=== PATIENT | female | born 1985 | race Caucasian/White ===

== ENCOUNTER 2016-11-14 16:26 | Inpatient (IN) | payer OTHER ==
[2016-11-14] VITALS (11 sets, daily range): BP systolic 92–107; BP diastolic 43–62; PULSE 58–79; RESP 16–18; TEMP 98–98.6
[~2016-11-14 16:26] MED LIST: DIPHTH/TETANUS/ACEL PERTUSSIS (BOOSTER) 0.5 ML VIAL/PFS IM ONE; MEASLES, MUMPS, RUBELLA VACCINE 0.5 ML VIAL SQ ONE; PREN1TAB63
[2016-11-14] MEDS ORDERED: LACTATED RINGER'S 1000 ML INJ 1,000 ML IV PRN (17:08)
[2016-11-14] MEDS ORDERED: LACTATED RINGER'S 1000 ML INJ 1,000 ML IV SCH (17:08)
--- NOTE | 2016-11-14 17:08 | PD ---
HPI Chief Complaint cramping x1 day Date Seen: Nov 14, 2016 Time Seen: 16:59 (Cyndi Jang MD R1) Travel History International Travel<30 Days: No Contact w/Intl Traveler<30Days: No (Cyndi Jang MD R1) History of Present Illness HPI 31 year-old @37/2 with [facility]C 12/03/16 with complaint of cramping since this morning. The bilateral,diffuse cramping is coming on stronger and more frequently, though she has not timed how far apart the cramping is. She is unsure if feeling regular contractions. Reports movement. Had vaginal spotting since 11/12 when last checked in [facility] office, with large clot produced this AM. Denies loss of fluid. 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 Relationship with boyfriend "Randall" Alcohol Use: No Tobacco Use: No Substance Abuse: No (Cyndi Jang MD R1) Allergies-Medications (Allergen,Severity, Reaction): Coded Allergies: No Known Allergies (Unverified , 11/14/16) Home Meds Reported Medications Multivit-Min W/Fe-FA ( Vitamins 0.8 mg)1 Tab Tab 08/16/16 Review of Systems Except as stated in HPI: all other systems reviewed are Neg (Cyndi Jang MD R1) General / Constitutional: No: Fever, Chills Eyes: No: Blurred Vision, Visual changes HENT: No: Headaches, Lightheadedness Cardiovascular: No: Chest Pain or Discomfort, Palpitations Respiratory: No: Cough, Short of Breath Gastrointestinal: Abdominal Pain (contractions), No: Nausea Genitourinary: Vaginal Bleeding (spotting), No: Urgency, Frequency, Dysuria Musculoskeletal: No: Limited ROM, Weakness Skin: No Rash, No Itching Neurologic: No: Weakness, Dizziness (Parvin Harris MD) Physical Exam Narrative CONST: Thin female in mild pain secondary to abdominal cramping. : External Genitalia: intact and normal in appearance Exam: 7cm/80/-1. Vertex presentation. Intact membrane. Contractions q2-4 minutes FHT's: Category I. Baseline 130. Yes Reactive. Moderate Variability. No decelerations HEENT: PERRL. MMM. CV: RRR. No murmurs RESP: Breathing well on RA GI: Abdomen soft, gravid, appropriate size for dates MSK: Trace peripheral edema. BACK: Nontender without obvious deformity NEURO: Motor and sensory grossly within normal limits DERM: Warm and dry (Cyndi Jang MD R1) Narrative EFW 2500gm (Parvin Harris MD) Data Data Vital Signs Reviewed: Yes (Cyndi Jang MD R1) Vital Signs Reviewed: Yes (Parvin Harris MD) [facility] Medical Record Reviewed: Yes Plan 31 year-old at 37/2 presents in active labor, with cervical dilation to 7cm , effacement 80%, station -1, with contractions every 2-4 minutes. 1. Intrapartum , 37 weeks -Admit to inpatient for active labor -Continue routing intrapartum care -CBC, Type/Screen, U/A pending -Category I tracing reassuring- continue monitor heart tones -Maternal vitals reassuring: AFVSS -Mother GBS negative -Mother blood A-, received Rhogam earlier in , will need Rhogam after delivery -Anticipate vaginal delivery SDW: Dr. Harris (Cyndi Jang MD R1) Attending Attestation 37 weeks Active labor @ 7 cm with UC q 2-3 min Membranes intact CAT I FHT GBS negative Admit, all questions answered. at this time declines pain medication/epidural. Expectant management, AROM at indicated. (Parvin Harris MD) Cyndi Jang MD R1 Nov 14, 2016 17:08 Parvin Harris MD Nov 14, 2016 17:33
[2016-11-14] MEDS ORDERED: OXYTOCIN 30 UNITS-500ML PREMIX 500 ML IV ONE (17:15)
[2016-11-14] MEDS ORDERED: SODIUM CHLORID 0.9% 500 ML INJ 500 ML IV PRN (17:15)
[2016-11-14] MEDS ORDERED: ONDANSETRON HCL 4 MG/2 ML VIAL IV PRN (17:15)
[2016-11-14] MEDS ORDERED: CITRIC ACID-SODIUM CITRATE LIQ 30 ML UDC PO SCH (17:15)
[2016-11-14] MEDS ORDERED: LIDOCAINE HCL 1% 50 ML VIAL I-DERMAL PRN (17:15)
[2016-11-14] MEDS ORDERED: LIDOCAINE HCL 1% 50 ML VIAL INFIL PRN (17:15)
[2016-11-14] MEDS ORDERED: MINERAL OIL 10 ML VIAL TOPICAL PRN (17:15)
[2016-11-14] MEDS ORDERED: SODIUM CHLOR 0.9% 1000 ML INJ 1,000 ML IV PRN (17:28)
--- NOTE | 2016-11-14 17:35 | HHI.HP ---
History & Physical H&P HPI Chief Complaint cramping x1 day Date Seen: Nov 14, 2016 Time Seen: 16:59 (Cyndi Jang MD R1) Travel History International Travel<30 Days: No Contact w/Intl Traveler<30Days: No (Cyndi Jang MD R1) History of Present Illness HPI 31 year-old @37/2 with [facility] 12/03/16 by [facility] with complaint of cramping since this morning. The bilateral,diffuse cramping is coming on stronger and more frequently, though she has not timed how far apart the cramping is. She is unsure if feeling regular contractions. Reports movement. Had vaginal spotting since 11/12 when last checked in [facility], with large clot produced this AM. Denies loss of fluid. 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 Relationship with boyfriend "Randall" Alcohol Use: No Tobacco Use: No Substance Abuse: No (Cyndi Jang MD R1) Allergies-Medications Allergies-Medications (Allergen,Severity, Reaction): Coded Allergies: No Known Allergies (Unverified , 11/14/16) Home Meds Reported Medications Multivit-Min W/Fe-FA ( Vitamins 0.8 mg)1 Tab Tab 08/16/16 ROS Review of Systems Except as stated in HPI: all other systems reviewed are Neg (Cyndi Jang MD R1) General / Constitutional: No: Fever, Chills Eyes: No: Blurred Vision, Visual changes HENT: No: Headaches, Lightheadedness Cardiovascular: No: Chest Pain or Discomfort, Palpitations Respiratory: No: Cough, Short of Breath Gastrointestinal: Abdominal Pain (contractions), No: Nausea Genitourinary: Vaginal Bleeding (spotting), No: Urgency, Frequency, Dysuria Musculoskeletal: No: Limited ROM, Weakness Skin: No Rash, No Itching Neurologic: No: Weakness, Dizziness (Parvin Harris MD) Physical Exam Physical Exam Narrative CONST: Thin female in mild pain secondary to abdominal cramping. : External Genitalia: intact and normal in appearance Exam: 7cm/80/-1. Vertex presentation. Intact membrane. Contractions q2-4 minutes FHT's: Category I. Baseline 130. Yes Reactive. Moderate Variability. No decelerations HEENT: PERRL. MMM. CV: RRR. No murmurs RESP: Breathing well on RA GI: Abdomen soft, gravid, appropriate size for dates MSK: Trace peripheral edema. BACK: Nontender without obvious deformity NEURO: Motor and sensory grossly within normal limits DERM: Warm and dry (Cyndi Jang MD R1) Narrative EFW 2500gm (Parvin Harris MD) Data Data Data Vital Signs Reviewed: Yes (Cyndi Jang MD R1) Vital Signs Reviewed: Yes (Parvin Harris MD) MDM MDM Medical Record Reviewed: Yes Plan 31 year-old at 37/2 presents in active labor, with cervical dilation to 7cm , effacement 80%, station -1, with contractions every 2-4 minutes. 1. Intrapartum , 37 weeks -Admit to inpatient for active labor -Continue routing intrapartum care -CBC, Type/Screen, U/A pending -Category I tracing reassuring- continue monitor heart tones -Maternal vitals reassuring: AFVSS -Mother GBS negative -Mother blood A-, received Rhogam earlier in , will need Rhogam after delivery -Anticipate vaginal delivery SDW: Dr. Harris (Cyndi Jang MD R1) Attending Attestation 37 weeks Active labor @ 7 cm with UC q 2-3 min Membranes intact CAT I FHT GBS negative Admit, all questions answered. at this time declines pain medication/epidural. Expectant management, AROM at indicated. (Parvin Harris MD) (Cyndi Jang MD R1) Cyndi Jang MD R1 Nov 14, 2016 17:35 Parvin Harris MD Nov 14, 2016 19:33
[2016-11-14 18:00] LABS: BASOPHIL % 0.1 % (0.0-2.0); EOSINOPHIL % 0.3 % (0.0-4.0); HEMATOCRIT 37.5 % (35.0-46.0); HEMO FLAGS DIFF FINAL; LYMPH % 12.7 % (9.0-44.0); LYMPHOCYTE # 1.9 TH/MM3 (1.0-4.8); MEAN CELL VOLUME 90.8 FL (80.0-100.0); MEAN CORPUSCULAR HEMOGLOBIN 30.5 PG (27.0-34.0); MEAN CORPUSCULAR HGB CONC 33.5 % (32.0-36.0); MONO % 7.7 % (0.0-8.0); NEUT % 79.2 % (16.0-70.0); PLATELET COUNT 121 TH/MM3 (150-450); RED BLOOD COUNT 4.13 MIL/MM3 (4.00-5.30); RED CELL DISTRIBUTION WIDTH 12.7 % (11.6-17.2); WHITE BLOOD COUNT 15.1 TH/MM3 (4.0-11.0)
[2016-11-14 18:11] LABS: BLOOD, URINE MOD (NEG); COMMENT (UR) CULTURE INDICATED; CULTURE IF INDICATED CULTURE INDICATED; GLUCOSE,URINE NEG (NEG); KETONE, URINE NEG (NEG); NITRITE,URINE NEG (NEG); PH, URINE 6.5 (5.0-8.5); SQUAMOUS EPITHELIAL CELL URINE 2 /hpf (0-5); URINE COLOR LIGHT-YELLOW (YELLW/STRAW)
--- NOTE | 2016-11-14 19:36 | PD.LABORPN ---
Subjective Subjective Regular UC, declines pain medication at this time Objective Vital Signs Vital Signs Date Time Temp Pulse Resp B/P Pulse Ox O2 Delivery O2 Flow Rate FiO2 11/14/16 18:57 98.0 18 11/14/16 18:55 58 105/55 Objective Pelvic Exam: /+1 AROM clear fluid TOCO: UC q 2-4 min FHT's: Category: I Baseline: 155 Reactive: +accelerations 175 Variability: mod Decels: [-] Assessment/Plan Assessment and Plan 37 weeks Expectant management s/p AROM, clear GBS negative Parvin Harris MD Nov 14, 2016 19:36
--- NOTE | 2016-11-14 21:37 | PD.OB.DELI ---
Delivery Date: Nov 14, 2016 Anesthesia: None Episiotomy: None Vaginal Delivery: Normal Presentation: Occiput anterior Nuchal Cord: None Delayed cord clamping (45 sec): No : Male One Minute : 8 Five Minute : 9 Weight: 2515g Care: Suctioned, Spontaneous crying Placenta: Spontaneous delivery, Intact (grossly normal) Laceration: 1 deg Repair: Vicryl running Additional Information 31 yo @ 37 weeks presented in active labor @ 7cm. GBS negative. AROM with clear fluid. . Placenta spontaneous and intact. First degree laceration reapproximated for hemostasis. EBL 150ml. Parvin Harris MD Nov 14, 2016 21:37
[2016-11-14] MEDS ORDERED: SODIUM CHLORIDE 0.9% FLUSH 5 ML FLUSH IV SCH (21:45)
[2016-11-14] MEDS ORDERED: BENZOCAINE 20% TOPICAL SPRAY 60 ML CAN TOPICAL PRN (21:45)
[2016-11-14] MEDS ORDERED: ZOLPIDEM TARTRATE 5 MG TAB PO PRN (21:45)
[2016-11-14] MEDS ORDERED: SODIUM CHLORIDE 0.9% FLUSH 5 ML FLUSH IV PRN (21:45)
[2016-11-14] MEDS ORDERED: ONDANSETRON ODT 4 MG TAB PO PRN (21:45)
[2016-11-14] MEDS ORDERED: IBUPROFEN 600 MG TAB PO PRN (21:45)
[2016-11-14] MEDS ORDERED: ALUMINUM/MAGNESIUM/SIMETH 30 ML CUP PO PRN (21:45)
[2016-11-14] MEDS ORDERED: DOCUSATE SODIUM 50 MG/SENNA 8.6 MG TAB PO PRN (21:45)
[2016-11-14] MEDS ORDERED: WITCH HAZEL 50%/GLYCERIN 12.5% 40 PAD JAR TOPICAL PRN (21:45)
[2016-11-14] MEDS ORDERED: ACETAMINOPHEN 325 MG TAB PO PRN (21:45)
[2016-11-15 08:00] VITALS: BP 101/62; PULSE 78; RESP 16; TEMP 98.8
--- NOTE | 2016-11-15 09:16 | HHI.OB ---
Subjective Post Day: 1 Remarks PPD1. Eating, voiding, stooling, ambulating without difficulty. Moderate lochia, decreasing. Encouraged OOB. Intends to breastfeed. Uncertain of control preference- will follow up outpt. Denies fevers/chills, SOB/chest pain , calf pain. (Cyndi Jang MD R1) Objective Vitals/I&O Vital Signs Date Time Temp Pulse Resp B/P Pulse Ox O2 Delivery O2 Flow Rate FiO2 11/15/16 08:00 98.8 78 16 101/62 11/14/16 23:43 98.6 70 16 100/57 11/14/16 23:01 77 107/43 11/14/16 22:46 79 103/62 11/14/16 22:30 76 101/58 11/14/16 22:16 65 92/49 11/14/16 22:14 65 97/48 11/14/16 21:40 18 11/14/16 21:38 76 101/46 11/14/16 21:15 18 11/14/16 18:57 98.0 18 11/14/16 18:55 58 105/55 Objective Remarks CONST: Thin female in NAD HEENT: PERRL. MMM. CV: RRR, without murmurs. RESP: Breathing well on RA. Lungs CTAB. GI: Soft, NTTP Fundus: Firm, non-tender, 3 fingerswith inferior to umbilicus. : Moderate bleeding BACK: Nontender without obvious deformity NEURO: Motor and sensory grossly within normal limits PSYCH: Affect appropriate. Good insight. Medications and IVs Current Medications Medications (Trade) Dose Ordered Sig/Jair Route Start Time Stop Time Status Last Admin (NS Flush) 2 ml BID IV 11/14/16 21:45 (NS Flush) 2 ml UNSCH PRN IV 11/14/16 21:45 (Tylenol) 650 mg Q4H PRN PO 11/14/16 21:45 (Motrin) 600 mg Q6H PRN PO 11/14/16 21:45 (Americaine 20% Top Spr) 1 spray Q4H PRN TOPICAL 11/14/16 21:45 11/15/16 06:28 (Tucks Pads) 1 applic QID PRN TOPICAL 11/14/16 21:45 2/16/17 06:28 (Kacey-Colace) 2 tab Q12H PRN PO 11/14/16 21:45 (Ambien) 5 mg HS PRN PO 11/14/16 21:45 (Mag-Al Plus Susp Liq) 15 ml Q8H PRN PO 11/14/16 21:45 (Zofran Odt) 4 mg Q6H PRN PO 11/14/16 21:45 (Cyndi Jang MD R1) Assessment/Plan Problem List: (1) Normal vaginal delivery Assessment and Plan 31y who is PPD1 normal vaginal delivery. 1. Normal Vaginal Delivery -Continue routine care -Motrin and Percocet PRN pain. Miralax JAIR for Bowel Reg. PRN Benadryl and PRN Zofran on board. -Encouraged OOB. Advised pelvic rest for 6 wks -Follow up OB appointment in 6 week with [facility] -Breast feeding. [employer] Social Worker Consulted. -Mom blood type A-, baby A+, Rhogam ordered for mom -RPR non-reactive 2 +LE in urine -Asymptomatic for UTI si/sxs -U/A +LE, occ bacteria, no nitrites, -Urine culture (11/14) pending. If positive, start appropriate abx Discharge Planning ppd1. tomorrow pending VSS and pain control SDW: Dr. Carlos Roblero DW: Dr Harris (Cyndi Jang MD R1) Attending Attestation PPD #1 s/p Doing well Breast feeding ok continue PP care and observation anticipate d/c in am Patient seen and examined with Dr. Roblero and Dr. Jang (Parvin Harris MD) Cyndi Jang MD R1 Nov 15, 2016 09:16 Parvin Harris MD Nov 15, 2016 10:08 drowsiness and chest tightness appear more consistent with adverse effects than true allergy. -Discontinue [employer] and toradol (s/p 24 hours JAIR use) -Start Oxycodone 5/325 q4h PRN pain 3-10 -Benedryl 25mg PO PRN hives/anaphylaxis Cyndi Jang MD R1 Nov 15, 2016 09:16
[2016-11-15 19:35] VITALS: BP 111/62; PULSE 61; RESP 16; TEMP 98.1
--- NOTE | 2016-11-16 07:23 | HHI.OB ---
Subjective Post Day: 2 Remarks PPD2. Eating, voiding, stooling, ambulating without difficulty. Decreasing lochia. Encouraged OOB. Intends to breastfeed. Would like to "be careful" regarding control. Pelvic rest and condoms recommended. Denies fevers/ chills, SOB/chest pain, calf pain. Objective Vitals/I&O Vital Signs Date Time Temp Pulse Resp B/P Pulse Ox O2 Delivery O2 Flow Rate FiO2 11/15/16 19:35 98.1 11/15/16 19:35 61 16 111/62 11/15/16 08:00 98.8 78 16 101/62 Objective Remarks CONST: Thin female in NAD. Smiles during exam. HEENT: PERRL. MMM. CV: RRR, without murmurs. RESP: Breathing well on RA. Lungs CTAB. GI: Soft, NTTP Fundus: Firm, non-tender, difficult to palpate, four fingerwidth inferior to umbilicus : Moderate bleeding BACK: Nontender without obvious deformity NEURO: Motor and sensory grossly within normal limits PSYCH: Affect appropriate. Good insight. Medications and IVs Current Medications Medications (Trade) Dose Ordered Sig/Jair Route Start Time Stop Time Status Last Admin (NS Flush) 2 ml BID IV 11/14/16 21:45 (NS Flush) 2 ml UNSCH PRN IV 11/14/16 21:45 (Tylenol) 650 mg Q4H PRN PO 11/14/16 21:45 (Motrin) 600 mg Q6H PRN PO 11/14/16 21:45 (Americaine 20% Top Spr) 1 spray Q4H PRN TOPICAL 11/14/16 21:45 11/15/16 06:28 (Tucks Pads) 1 applic QID PRN TOPICAL 11/14/16 21:45 11/15/16 06:28 (Kacey-Colace) 2 tab Q12H PRN PO 11/14/16 21:45 (Ambien) 5 mg HS PRN PO 11/14/16 21:45 (Mag-Al Plus Susp Liq) 15 ml Q8H PRN PO 11/14/16 21:45 (Zofran Odt) 4 mg Q6H PRN PO 11/14/16 21:45 Assessment/Plan Problem List: (1) Normal vaginal delivery (2) Rh incompatibility in , delivered Assessment and Plan 31y who is PPD2 normal vaginal delivery. 1. Normal Vaginal Delivery -Continue routine care -Motrin and Percocet PRN pain. Miralax JAIR for Bowel Reg. PRN Benadryl and PRN Zofran on board. -Encouraged OOB. Advised pelvic rest for 6 wks -Follow up OB appointment in 6 week with [facility] -Breast feeding. Senior Biostatistician Consulted. -Mom blood type A-, baby A+, Rhogam ordered for mom has not yet been received ( got 11/13, delivered 11/14 needs another dose) -RPR non-reactive 2 +LE in urine -Asymptomatic for UTI si/sxs -U/A +LE, occ bacteria, no nitrites, -Urine culture (11/14) pending. If positive, start appropriate abx. 11/15- Immature growth- reincubate. Follow up and call outpt for appropriate abx, as indicated. 3. Rh incompatibility in , delivered -Mother received Rhogam 11/15/16 (not yet in EMR, but paper trail available) Discharge Planning ppd2. today DW: Dr. Carlos Roblero, Cyndi Christopher MD R1 Nov 16, 2016 07:23
[2016-11-16] MEDS ORDERED: IBUP-232 PO (07:30)
--- NOTE | 2016-11-16 07:31 | HHI.DCPOC ---
Discharge Care Plan Diagnosis: (1) Normal vaginal delivery Report Symptoms to Your Doctor -Temperate above 100.5 degrees -Redness, of incision or excessive or foul smelling drainage -Unusual pain or calf pain -Increased vaginal bleeding -Painful or difficulty urinating -Feelings of extreme sadness or anxiety after 2 weeks Goals to Promote Your Health * To prevent worsening of your condition and complications * To maintain your health at the optimal level Directions to Meet Your Goals Take your medications as prescribed Follow your dietary instruction Follow activity as directed Ensure plenty of rest for recovery Drink fluids for hydration Keep your appointments as scheduled Take your immunizations and boosters as scheduled If your symptoms worsen call your PCP, if no PCP go to Urgent Care Center or Emergency Room Smoking is Dangerous to Your Health. Avoid second hand smoke Call the 24-hour crisis hotline for domestic abuse at Cyndi Jang MD R1 Nov 16, 2016 07:31
[2017-01-02] MEDS ORDERED: PREN1CAP30 PO (09:55)
== END 2016-11-16 13:36 | disposition home or self-care (01) | DRG 775 ==
LOC: HOBED 16:26 → H2EB 17:01 → H1EA 23:17
PROVIDERS: ADMIT Obstetrics & Gynecology; ATTEND Obstetrics & Gynecology
PROC: 10E0XZZ Delivery of Products of Conception, External Approach (ICD-10-PCS; principal; 2016-11-14)
PROC: 0HQ9XZZ Repair Perineum Skin, External Approach (ICD-10-PCS; 2016-11-14)
PROC: 10907ZC Drainage of Amniotic Fluid, Therapeutic from Products of Conception, Via Natural or Artificial Opening (ICD-10-PCS; 2016-11-14)
DX: O70.0 First degree perineal laceration during delivery (principal); O36.0930 Maternal care for other rhesus isoimmunization, third trimester, not applicable or unspecified; Z37.0 Single live birth; Z3A.37 37 weeks gestation of pregnancy
CPT/HCPCS: 59025; 81001; 85025; 85461; 86077; 86850; 86870; 86900; 86901; 87086; 90384; 99285; J2790